=== PATIENT | female | born 1975 | race African-American/Black ===

== ENCOUNTER 2022-08-01 11:41 | Emergency (ER) | payer BC ==
[2022-08-01] MEDS ORDERED: Fluorescein Opthalmic Strip ONE (12:43)
[2022-08-01] MEDS ORDERED: Proparacaine 0.5% Opth 15 ML BOT R EYE SCH (13:00)
== END 2022-08-01 13:16 | disposition home or self-care (01) ==
LOC: CSHERS 11:41
DX: H57.11 Ocular pain, right eye (principal); K21.9 Gastro-esophageal reflux disease without esophagitis; I10 Essential (primary) hypertension; F17.290 Nicotine dependence, other tobacco product, uncomplicated; Z79.899 Other long term (current) drug therapy
CPT/HCPCS: 99283

== ENCOUNTER 2023-02-09 15:50 | Emergency (ER) | payer BC ==
[~2023-02-09 15:50] MED LIST: Iopamidol 370 76% 100 ML VIAL ONE
[2023-02-09] MEDS ORDERED: Aspirin Chewable 81 MG TAB ONE (16:23)
[2023-02-09 16:26] LABS: #Eosinphils 0.1 10x3/uL (0.0-0.5); #Monocytes 0.3 10x3/uL (0.0-1.1); #Neutrophils 2.4 10x3/uL (1.5-8.4); %Basophils 0.9 % (0.0-2.0); %Eosinophils 1.6 % (0.0-6.0); %Lymphocytes 36.4 % (18.0-47.0); %Monocytes 6.6 % (0.0-10.0); %Neutrophils 54.3 % (40.0-75.0); Hematocrit 39.9 % (34.9-44.5); Mean Corpuscular HGB CONC 32.6 g/dL (32.0-36.0); Mean Corpuscular Hemoglobin 27.7 pg (27.0-33.0); Mean Corpuscular Volume 85.1 fl (81.6-98.3); Platelet Count 176 10x3/uL (150-450); RBC Distribution Width 14.5 % (11.5-14.5); Red Blood Cell (RBC) Count 4.69 10x6/uL (3.90-5.03); White Blood Cell (WBC) Count 4.4 10x3/uL (3.5-10.5)
[2023-02-09 16:41] LABS: ALT (SGPT) 13 U/L (8-55); AST (SGOT) 16 U/L (5-34); Albumin 4.4 g/dL (3.5-5.0); Alkaline Phosphatase 56 U/L (40-110); Anion Gap 14 mmol/L (10-20); BUN (Urea Nitrogen) 16 mg/dL (7.0-18.7); Bilirubin, Total 0.5 mg/dL (0.2-1.2); Calc. Creatinine Clearance 0 mL/min (70-130); Carbon Dioxide 24 mmol/L (22-29); Chloride 105 mmol/L (98-107); Estimated GFR 74; Globulin 2.8 g/dL (2.4-3.5); Glucose 96 mg/dL (70-105); Potassium 3.6 mmol/L (3.5-5.1); Protein, Total 7.2 g/dL (6.0-8.3); Sodium 139 mmol/L (136-145)
[2023-02-09 16:47] LABS: Troponin I Less than 0.010 ng/mL (< 0.028)
[2023-02-09 17:42] LABS: SARS-CoV-2 NAA Rapid Test Not Detected (NotDetected)
== END 2023-02-09 18:50 | disposition home or self-care (01) ==
LOC: CSHERS 15:50
DX: R06.02 Shortness of breath (principal); I10 Essential (primary) hypertension; K21.9 Gastro-esophageal reflux disease without esophagitis; F17.290 Nicotine dependence, other tobacco product, uncomplicated; Z20.822 Contact with and (suspected) exposure to COVID-19
CPT/HCPCS: 71275; 80053; 83880; 84484; 85025; 93005; Q9967

== ENCOUNTER 2024-06-09 20:24 | Emergency (ER) | payer BC ==
[2024-06-09] MEDS ORDERED: Prochlorperazine 10 MG/2 ML VIAL ONE (22:03)
[2024-06-09] MEDS ORDERED: diphenhydrAMINE 50 MG/ML VIAL ONE (22:03)
[2024-06-09 22:30] LABS: #Basophils 0.05 10x3/uL (0.0-0.2); #Eosinophils 0.11 10x3/uL (0.0-0.5); #Monocytes 0.39 10x3/uL (0.0-1.1); #Neutrophils 2.74 10x3/uL (1.5-8.4); %Basophils 0.9 % (0.0-2.0); %Eosinophils 2.1 % (0.0-6.0); %Monocytes 7.3 % (0.0-10.0); %Neutrophils 51.5 % (40.0-75.0); Hematocrit 41.6 % (34.9-44.5); Hemoglobin 13.1 g/dL (12.0-15.5); Mean Corpuscular HGB CONC 31.5 g/dL (32.0-36.0); Mean Corpuscular Hemoglobin 27.3 pg (27.0-33.0); Mean Corpuscular Volume 86.7 fL (81.6-98.3); Mean Platelet Volume 10.4 fL (7.4-10.4); Platelet Count 181 10x3/uL (150-450); RBC Distribution Width 14.6 % (11.5-14.5); White Blood Cell (WBC) Count 5.32 10x3/uL (3.5-10.5)
[2024-06-09 22:49] LABS: Troponin I Less than 0.010 ng/mL (< 0.028)
[2024-06-09 23:09] LABS: ALT (SGPT) 13 U/L (8-55); AST (SGOT) 22 U/L (5-34); Albumin 3.6 g/dL (3.5-5.0); Alkaline Phosphatase 69 U/L (40-110); Anion Gap 12 mmol/L (10-20); BUN (Urea Nitrogen) 11 mg/dL (7.0-18.7); Bilirubin, Total 0.4 mg/dL (0.2-1.2); Calc. Creatinine Clearance 0 mL/min (70-130); Calcium 8.6 mg/dL (7.8-10.44); Carbon Dioxide 24 mmol/L (22-29); Chloride 107 mmol/L (98-107); Estimated GFR 75; Globulin 3.3 g/dL (2.4-3.5); Glucose 82 mg/dL (70-105); Magnesium 1.9 mg/dL (1.6-2.6); Potassium 3.8 mmol/L (3.5-5.1); Protein, Total 6.9 g/dL (6.0-8.3); Sodium 139 mmol/L (136-145)
== END 2024-06-10 00:15 | disposition home or self-care (01) ==
LOC: CSHERS 20:24
DX: I16.0 Hypertensive urgency (principal); R51.9 Headache, unspecified; K21.9 Gastro-esophageal reflux disease without esophagitis; I10 Essential (primary) hypertension; F17.290 Nicotine dependence, other tobacco product, uncomplicated; Z79.899 Other long term (current) drug therapy
CPT/HCPCS: 36415; 70450; 80053; 83735; 84484; 85025; 93005; 96365; 96366; 96375; J0780; J1200